=== PATIENT | female | born 1995 ===

== ENCOUNTER 2017-10-22 06:35 | Emergency (ER) | payer BC ==
[~2017-10-22] VITALS: Ht 162.6 cm; Wt 56.3 kg
[2017-10-22 06:43] VITALS: BP 130/89
[2017-10-22] MEDS ORDERED: MAALOX/HYOSCYAMINE/LIDOCAINE 45 ML BTL ONE (07:14)
[2017-10-22 07:24] LABS: BASOPHILS # (AUTO) 0.03 x10^3/uL (0-0.3); BASOPHILS % (AUTO) 0 % (0-1); EOSINOPHILS # (AUTO) 0.23 x10^3/uL (0-0.8); EOSINOPHILS % (AUTO) 2 % (1-7); LYMPHOCYTES # (AUTO) 2.32 x10^3/uL (1-6.1); LYMPHOCYTES % (AUTO) 22 % (22-44); MD NO; MEAN CORPUSCULAR HEMOGLOBIN 30.1 pg (27.0-34.8); MEAN CORPUSCULAR HGB CONC 33.4 g/dL (32.4-35.8); MEAN CORPUSCULAR VOLUME 90.1 fL (80-100); MEAN PLATELET VOLUME 7.6 fL (7.4-10.4); MONOCYTES # (AUTO) 0.45 x10^3/uL (0-1.4); MONOCYTES % (AUTO) 4 % (2-9); NEUTROPHILS # (AUTO) 7.42 x10^3/uL (1.8-8.0); NEUTROPHILS % (AUTO) 71 % (42-75); PLATELET COUNT 289 x10^3/uL (130-400); RED CELL DISTRIBUTION WIDTH 13.9 % (9.6-15.2)
[2017-10-22] MEDS ORDERED: MAALOX/HYOSCYAMINE/LIDOCAINE 45 ML BTL PO ONE (07:30)
[2017-10-22] MEDS ORDERED: ONDANSETRON ODT 4 MG PO ONE (07:30)
[2017-10-22 07:33] LABS: ALANINE AMINOTRANSFERASE 22 U/L (12-78); ANION GAP 10 mmol/L (5-15); CALCIUM 8.8 mg/dL (8.5-10.1); CHLORIDE 107 mmol/L (98-107); CREATININE 0.76 mg/dL (0.55-1.02)
[2017-10-22 07:36] LABS: ALKALINE PHOSPHATASE 66 U/L (45-117); BILIRUBIN,TOTAL 0.4 mg/dL (0.2-1.0); TOTAL PROTEIN 7.2 g/dL (6.4-8.2)
[2017-10-22 07:56] LABS: HCG UR SG 1.031 (1.003-1.030); MICROSCOPIC NOT IND
[2017-10-22 08:00] LABS: CULTURE INDICATED? NO
== END 2017-10-22 08:57 | disposition home or self-care (01) ==
LOC: ED 08:34
DX: R07.89 Other chest pain (principal); K22.4 Dyskinesia of esophagus
CPT/HCPCS: 36415; 71046; 80053; 81003; 81025; 83690; 85025; 93005; 99285